=== PATIENT | female | born 1935 | race Caucasian/White ===

== ENCOUNTER 2019-05-07 14:35 | Inpatient (IN) | payer MEDICARE ==
[2019-05-07 15:13] LABS: #Basophils 0.1 thou/uL (0.0-0.2); #Eosinphils 0.3 thou/uL (0.0-0.7); #Lymphocytes 2.2 thou/uL (1.20-3.40); #Neutrophils 4.9 thou/uL (1.40-6.50); %Basophils 0.6 % (0.0-1.0); %Eosinophils 3.4 % (0.0-10.0); %Lymphocytes 26.3 % (21.0-51.0); %Monocytes 11.6 % (0.0-10.0); %Neutrophils 58.1 % (42.0-75.0); Hemoglobin 11.5 g/dL (12.0-16.0); Mean Corpuscular HGB CONC 33.2 g/dL (32.0-36.0); Mean Corpuscular Hemoglobin 30.7 pg (27.0-31.0); Mean Corpuscular Volume 92.6 fL (78.0-98.0); Mean Platelet Volume 8.5 fL (7.4-10.4); Platelet Count 305 thou/uL (130-400); RBC Distribution Width 11.9 % (11.5-14.5); Red Blood Cell (RBC) Count 3.76 mill/uL (4.20-5.40); White Blood Cell (WBC) Count 8.5 thou/uL (4.8-10.8)
[2019-05-07 15:52] LABS: ALT (SGPT) 12 U/L (8-55); AST (SGOT) 25 U/L (5-34); Albumin 3.7 g/dL (3.4-4.8); Alkaline Phosphatase 89 U/L (40-110); Anion Gap 15 mmol/L (10-20); BUN (Urea Nitrogen) 13 mg/dL (9.8-20.1); Bilirubin, Total 0.4 mg/dL (0.2-1.2); Calc. Creatinine Clearance 0 mL/min (70-130); Calcium 8.9 mg/dL (7.8-10.44); Carbon Dioxide 27 mmol/L (23-31); Chloride 100 mmol/L (98-107); Estimated GFR-MDRD 73; Globulin 3.3 g/dL (2.4-3.5); Glucose 110 mg/dL (83-110); Potassium 4.8 mmol/L (3.5-5.1); Sodium 137 mmol/L (136-145)
--- NOTE | 2019-05-07 16:21 | ULT ---
Venous duplex sonogram bilateral lower extremity HISTORY: Bilateral leg pain and edema. FINDINGS: Each common femoral vein and greater saphenous junction were evaluated along with each femo ral, deep femoral, popliteal, and posterior tibial vein. There is good color and spectral Doppler flow and compression. IMPRESSION: No sonographic evidence of DVT within either lower extremity.
--- NOTE | 2019-05-07 16:36 | RAD ---
Exam: Chest one view HISTORY:Dyspnea. Erythema. Leg pain. Comparison: None FINDINGS: Cardiac silhouette:Upper normal cardiac silhouette. Aorta: Atherosclerosis Pulmonary vessels: Normal Costophrenic angles: Clear LUNGS: Hyperinflation. No masses or consolidation. Pneumothorax: None Osseous abnormalities: None IMPRESSION: 1. Cardiomegaly. No congestive heart failure 2. Atherosclerosis 2. Hyperinflation. Correlate for possible COPD. No masses or consolidation.
[2019-05-07] MEDS ORDERED: Ondansetron PF 4 MG/2 ML Vial ONE (16:58)
[2019-05-07] MEDS ORDERED: Morphine 4 MG/ML VIAL ONE (16:58)
[2019-05-07] MEDS ORDERED: Vancomycin 1 GM/200 ML BAG ONE (17:35)
[2019-05-07 18:10] LABS: Bilirubin Negative (Negative); Blood, Urine Negative (Negative); Glucose, Urine (Dipstick) Negative (Negative); Leukocyte Moderate (Negative); Nitrite Negative (Negative); Protein, Urine (Dipstick) Negative (Neg-Trace); Urobilinogen 0.2 mg/dL (Less than 2)
[2019-05-07 18:11] LABS: Clarity Clear (Clear)
[2019-05-07 18:14] LABS: RBC/HPF 0-3 HPF (0-3); Squamous Epithelial 0-3 HPF (0-3); Transitional Epithelial 0-3 HPF (None Seen); WBC/HPF Greater than 50 HPF (0-3)
[2019-05-07 18:15] LABS: Bacteria/HPF 1+ HPF (None Seen)
[2019-05-07 21:12] VITALS: BMI 22.5
[2019-05-07] MEDS ORDERED: Ketorolac Tromethamine 30 MG/ML VIAL IVP PRN (21:22)
[2019-05-08] MEDS ORDERED: Acetaminophen 650 MG Suppository PR PRN (01:00)
[2019-05-08] MEDS ORDERED: HYDROcodone/Acetaminophen 5/325 mg Tablet PO PRN (01:00)
[2019-05-08] MEDS: Sodium Chloride 0.9% 1,000 ML IV SCH (01:43)
--- NOTE | 2019-05-08 03:30 | PDOC.HHP ---
Hospitalist HPI - History of Present Illness Bilateral lower leg pain and swelling History of Present Illness: Ms. Zhao presents with complaints of increasing redness and swelling as well as pain in both lower legs for the last 2 weeks. She recently had completed a course of antibiotics for bilateral lower leg cellulitis. She has had issues with recurring infections since this past summer after undergoing a procedure for her PVD. She states her symptoms had gotten better until she was off the antibiotics. Reports having pain in both legs. No trauma or injury. she has noted swelling of both feet. Her pain is 8/10 in severity. Son states they were told the infections are due to poor circulation and that they would benefit form being seen by a CV surgeon to discuss options. ED Course: In the ED she had an EKG showing NSR, HR 83. CXR: 1. Cardiomegaly. No congestive heart failure 2. Atherosclerosis 3. Hyperinflation. Correlate for possible COPD. No masses or consolidation. Venous doppler, Bilat: No evidence of DVT within either lower extremity. Labs showed a normal lactic acid. Trop negative. BNP 70.4. WCC 8.5, Hgb 11.5, Platelet 305. BUN 13, creat 0.75, GFR 73. Started on Vanc. Given Morphine for pain. Hospitalist ROS - Review of Systems Constitutional: denies: fever, chills, sweats, weakness, malaise, other Eyes: denies: pain, vision change, conjunctivae inflammation, eyelid inflammation, redness, other ENT: denies: ear pain, ear discharge, nose pain, nose discharge, nose congestion , mouth pain, mouth swelling, throat pain, throat swelling, other Respiratory: denies: cough, dry, shortness of breath, hemoptysis, SOB with excertion, pleuritic pain, sputum, wheezing, other Cardiovascular: denies: chest pain, palpitations, orthopnea, paroxysmal noc. dyspnea, edema, light headedness, other Gastrointestinal: denies: nausea, vomiting, abdominal pain, diarrhea, constipation, melena, hematochezia, other Genitourinary: denies: dysuria, frequency, incontinence, hematuria, retention, other Musculoskeletal: reports: leg pain (bilateral with erythema and swelling), foot pain (swelling) Skin: reports: other (dry scaling skin changes of both lower legs) - Medication Medications: Active Medications Generic Name Dose Route Start Last Admin Trade Name Luan PRN Reason Stop Dose Admin Sodium Chloride 1,000 mls @ 50 mls/hr 05/08/19 01:15 05/08/19 01:43 Normal Saline 0.9% IV 1,000 mls .Q20H DONALD Administration Ketorolac Tromethamine 15 mg 05/07/19 21:22 05/07/19 22:16 Toradol IVP 05/12/19 21:23 15 mg Q6H PRN Administration Pain Home Medications: Augmentin FriMay 07, 2019 15:42 NANO Elizabeth Kassidy tablet : Strength - 875 mg-125 mg : ORAL Patient Dose: 2 times a day. Keflex FriMay 07, 2019 15:43 NANO Elizabeth Kassidy capsule : Strength - 500 mg : ORAL Patient Dose: 2 times a day.for 7 days. fexofenadine FriMay 07, 2019 15:43 NANO Elizabeth Kassidy tablet : Strength - 180 mg : ORAL Patient Dose: once a day (in the morning). nystatin topical FriMay 07, 2019 15:44 NANO Elizabeth Kassidy powder : Strength - 100,000 unit/gram : TOPICAL Patient Dose: 2 times a day. divalproex FriMay 07, 2019 15:45 NANO Elizabeth Kassidy tablet extended release 24 hr : Strength - 250 mg : ORAL Patient Dose: once a day. Tylenol Extra Strength FriMay 07, 2019 15:45 NANO Elizabeth Kassidy capsule : Strength - 500 mg : ORAL Patient Dose: once a day. OLANZapine oral FriMay 07, 2019 15:46 NANO Elizabeth Kassidy tablet : Strength - 5 mg : ORAL Patient Dose: once a day (in the evening). Pradaxa FriMay 07, 2019 15:46 NANO Elizabeth Kassidy capsule : Strength - 75 mg : ORAL Patient Dose: 2 times a day. Lasix oral FriMay 07, 2019 15:47 NANO Elizabeth Kassidy tablet : Strength - 20 mg : ORAL Patient Dose: 2 times a day. Hospitalist History - Past Medical History Source: patient, family Cardiac: reports: AFIB, Other (PVD) Psych: reports: Bipolar, Other (Dementia) Musculoskeletal: reports: Other (dependent edema) Infectious Disease: reports: Other (chronic cellulitis of BLE) - Past Surgical History Past Surgical History: reports: Tubal Ligation - Family History Family History: reports: no pertinent history - Social History Smoking Status: Never smoker Alcohol: reports: None Drugs: reports: none Living Situation: Alone Activity level: uses cane/walker (normally uses a walker but more recently requiring wheelchair due to leg pain/swelling) - Exam General Appearance: NAD, awake alert Eye: PERRL, anicteric sclera ENT: normocephalic atraumatic, no oropharyngeal lesions, dry oral mucosa Neck: supple, no lymphadenopathy Heart: RRR, normal peripheral pulses Respiratory: CTAB, no wheezes, no rales, no ronchi, normal chest expansion, no tachypnea Gastrointestinal: soft, non-tender, non-distended, normal bowel sounds, no guarding, no rigidity Extremities - other findings: swelling of bilateral feet and lower legs, redness from ankles up to knees Skin - other findings: generally dry skin, with scaling of bilateral lower legs Neurological: cranial nerve grossly intact, normal sensation to touch Musculoskeletal: normal tone, normal strength, no muscle wasting Psychiatric: normal affect, normal behavior, A&O x 3 Hospitalist Results - Labs Result Diagrams: 05/07/19 14:54 05/07/19 14:54 Lab results: WBC 8.5 thou/uL (4.8-10.8) 05/07/19 14:54 Hgb 11.5 g/dL (12.0-16.0) L 05/07/19 14:54 Hct 34.8 % (36.0-47.0) L 05/07/19 14:54 MCV 92.6 fL (78.0-98.0) 05/07/19 14:54 Plt Count 305 thou/uL (130-400) 05/07/19 14:54 Neutrophils % 58.1 % (42.0-75.0) 05/07/19 14:54 Sodium 137 mmol/L (136-145) 05/07/19 14:54 Potassium 4.8 mmol/L (3.5-5.1) 05/07/19 14:54 Chloride 100 mmol/L (98-107) 05/07/19 14:54 Carbon Dioxide 27 mmol/L (23-31) 05/07/19 14:54 BUN 13 mg/dL (9.8-20.1) 05/07/19 14:54 Creatinine 0.75 mg/dL (0.6-1.1) 05/07/19 14:54 Glucose 110 mg/dL (83-110) 05/07/19 14:54 Lactic Acid 1.4 mmol/L (0.5-2.2) 05/07/19 15:41 Calcium 8.9 mg/dL (7.8-10.44) 05/07/19 14:54 Total Bilirubin 0.4 mg/dL (0.2-1.2) 05/07/19 14:54 AST 25 U/L (5-34) 05/07/19 14:54 ALT 12 U/L (8-55) 05/07/19 14:54 Alkaline Phosphatase 89 U/L (40-110) 05/07/19 14:54 Troponin I 0.023 ng/mL (< 0.028) 05/07/19 14:54 B-Natriuretic Peptide 70.4 pg/mL (0-100) 05/07/19 14:54 Serum Total Protein 7.0 g/dL (6.0-8.3) 05/07/19 14:54 Albumin 3.7 g/dL (3.4-4.8) 05/07/19 14:54 Urine Ketones 15 mg/dL (Negative) A 05/07/19 17:57 Urine Blood Negative (Negative) 05/07/19 17:57 Urine Nitrite Negative (Negative) 05/07/19 17:57 Ur Leukocyte Esterase Moderate (Negative) H 05/07/19 17:57 Urine RBC 0-3 HPF (0-3) 05/07/19 17:57 Urine WBC Greater than 50 HPF (0-3) A 05/07/19 17:57 Ur Squamous Epith Cells 0-3 HPF (0-3) 05/07/19 17:57 Urine Bacteria 1+ HPF (None Seen) A 05/07/19 17:57 Hospitalist H&P A/P - Problem (1) Bilateral lower leg cellulitis Code(s): L03.116 - CELLULITIS OF LEFT LOWER LIMB; L03.115 - CELLULITIS OF RIGHT LOWER LIMB Status: Acute (2) Leg pain Status: Acute (3) Cardiomegaly Code(s): I51.7 - CARDIOMEGALY Status: Acute (4) Dependent edema Code(s): R60.9 - EDEMA, UNSPECIFIED Status: Chronic (5) History of atrial fibrillation Code(s): Z86.79 - PERSONAL HISTORY OF OTHER DISEASES OF THE CIRCULATORY SYSTEM Status: Chronic (6) PVD (peripheral vascular disease) Code(s): I73.9 - PERIPHERAL VASCULAR DISEASE, UNSPECIFIED Status: Chronic - Plan Plan: Continue IV Abx Consult Dr. Baldwin of ID Will try Toradol for pain, morphine did not help Reconcile home meds once verified. Repeat labs in AM. CODE STATUS: FULL Surrogate decision maker is her son: Dwight Meadows PCP: Dr. Sheets.
[2019-05-08 06:36] LABS: #Eosinphils 0.2 thou/uL (0.0-0.7); #Lymphocytes 1.5 thou/uL (1.20-3.40); #Monocytes 0.8 thou/uL (0.11-0.59); #Neutrophils 4.1 thou/uL (1.40-6.50); %Basophils 0.3 % (0.0-1.0); %Lymphocytes 23.5 % (21.0-51.0); %Monocytes 11.6 % (0.0-10.0); %Neutrophils 61.6 % (42.0-75.0); Hemoglobin 9.9 g/dL (12.0-16.0); Mean Corpuscular HGB CONC 33.3 g/dL (32.0-36.0); Mean Corpuscular Hemoglobin 30.9 pg (27.0-31.0); Mean Corpuscular Volume 92.8 fL (78.0-98.0); Mean Platelet Volume 7.9 fL (7.4-10.4); Platelet Count 244 thou/uL (130-400); RBC Distribution Width 11.7 % (11.5-14.5); White Blood Cell (WBC) Count 6.6 thou/uL (4.8-10.8)
[2019-05-08 06:57] LABS: Anion Gap 10 mmol/L (10-20); BUN (Urea Nitrogen) 12 mg/dL (9.8-20.1); Calc. Creatinine Clearance 67 mL/min (70-130); Carbon Dioxide 25 mmol/L (23-31); Chloride 105 mmol/L (98-107); Estimated GFR-MDRD Greater than 90; Glucose 89 mg/dL (83-110); Sodium 136 mmol/L (136-145)
[2019-05-08] MEDS: HYDROcodone/Acetaminophen 5/325 mg Tablet PO PRN ×3 (08:42→19:59)
[2019-05-08] MEDS ORDERED: Vancomycin 1 GM in Premix Bag 1 BAG IVPB SCH ×2 (12:00→18:00)
--- NOTE | 2019-05-08 12:07 | PDOC.HOSPP ---
- Subjective Encounter Date: 05/08/19 Encounter Time: 11:45 Subjective: f/u for LE cellulitis and chronic lymphedema tx with Vancomycin currently. Family states it looks improved since yesterday. - Objective Vital Signs & Weight: Vital Signs (12 hours) Temp Pulse Resp BP Pulse Ox 05/08/19 11:39 98.2 F 86 16 110/58 L 95 05/08/19 07:45 98.4 F 85 16 119/56 L 95 05/08/19 04:00 98.4 F 84 20 124/68 93 L Weight Weight 143 lb 12.8 oz Result Diagrams: 05/08/19 06:25 05/08/19 06:25 Additional Labs: Microbiology 05/07/19 15:41 Venous blood - Right Hand Blood Culture - Preliminary Specimen has been received and culture in progress. No Growth to date. 05/07/19 15:35 Venous blood - Left Hand Blood Culture - Preliminary Specimen has been received and culture in progress. No Growth to date. Laboratory Tests 05/07/19 14:54 Hgb 11.5 L Radiology Reviewed by me: Yes (BLE dopp - no DVT) Hospitalist ROS - Medication Medications: Active Medications Generic Name Dose Route Start Last Admin Trade Name Freq PRN Reason Stop Dose Admin Hydrocodone Bitart/Acetaminophen 1 tab 05/08/19 01:00 05/08/19 08:42 [place] 5/325 PO 1 tab Q4H PRN Administration Moderate Pain (4-6) Sodium Chloride 1,000 mls @ 50 mls/hr 05/08/19 01:15 05/08/19 01:43 Normal Saline 0.9% IV 1,000 mls .Q20H DONALD Administration Vancomycin HCl 1 gm/ Device 200 mls @ 200 mls/hr 05/08/19 12:00 05/08/19 12: 02 IVPB 200 mls Q12H DONALD Administration Ketorolac Tromethamine 15 mg 05/07/19 21:22 05/07/19 22:16 Toradol IVP 05/12/19 21:23 15 mg Q6H PRN Administration Pain - Exam General Appearance: NAD Eye: PERRL, anicteric sclera ENT: normocephalic atraumatic, no oropharyngeal lesions Neck: supple, symmetric, no JVD, no thyromegaly Heart: RRR, no murmur, no gallops, no rubs, diminshed peripheral pulses Respiratory: CTAB, no wheezes, no rales, no ronchi, normal chest expansion Gastrointestinal: soft, non-tender, non-distended, normal bowel sounds, no palpable masses Extremities: no cyanosis, no clubbing Extremities - other findings: minimal edema Skin - other findings: BLE with chronic venous stasis, scaling, erythema Neurological: cranial nerve grossly intact, no new deficit Musculoskeletal: normal tone, generalized weakness Psychiatric: normal affect, oriented to person Hosp A/P (1) Bilateral lower leg cellulitis Code(s): L03.116 - CELLULITIS OF LEFT LOWER LIMB; L03.115 - CELLULITIS OF RIGHT LOWER LIMB Status: Acute Plan: Improved, continue Vancomycin 1gm IV q12h, consult wound care team, elevate [place] (2) Chronic venous stasis dermatitis of both lower extremities Code(s): I87.2 - VENOUS INSUFFICIENCY (CHRONIC) (PERIPHERAL) Status: Chronic Plan: Consult WCT, Elevate [place], plan for ferry terminal agent mgmt (3) UTI (urinary tract infection) Status: Acute Plan: Suspected, start Rocephin 2gm IV daily (4) Anemia Code(s): D64.9 - ANEMIA, UNSPECIFIED Status: Acute Plan: Unclear etiology, component of nutritional status, check Iron studies, serial H/ H - Plan plan discussed w/ family, continue antibiotics, PT/OT, social media content manager, out of bed/ambulate Stable currently Continue Vancomycin 1gm IV q12h Add Rocephin 2gm IV daily WCT consult Consult CM for ?SNF/NH options AM lab: BMP, CBC
[2019-05-08] MEDS ORDERED: cefTRIAXone\\ROCEPHIN 2 GM in Sodium Chloride 0.9% 100 ML IVPB SCH (13:00)
--- NOTE | 2019-05-08 15:07 | CON ---
DATE OF CONSULTATION: 05/08/2019 REASON FOR CONSULTATION: Possible cellulitis. HISTORY OF PRESENT ILLNESS: An 84-year-old with history of venous insufficiency, dementia, atrial fibrillation, who has been diagnosed with cellulitis in the lower extremities for the past few months and treated with antimicrobials without improvement. She was eventually admitted here and she is currently on antimicrobial therapy. She has a lot of itching in the legs. No headaches. No visual symptoms. No sore throat, odynophagia, dysphagia, or dyspnea. No chest pain. No abdominal pain. Voiding spontaneously. No diarrhea. PAST MEDICAL HISTORY: 1. Dementia, probably from vascular issues. 2. Atrial fibrillation. 3. Venous insufficiency. PAST SURGICAL HISTORY: Tubal ligation. SOCIAL HISTORY: Never smoker. Lives in an assisted living facility, [facility], in [place]. ALLERGIES: NONE. MEDICATION LIST: 1. [place]. 2. Rocephin. 3. Pradaxa. 4. Depakote. 5. Toradol. 6. Claritin. 7. Zyprexa. 8. Vancomycin. PHYSICAL EXAMINATION: VITAL SIGNS: Essentially normal temperature. Other vital signs are not particularly remarkable. O2 saturations are 95. GENERAL: Eating lunch at the moment. She does not appear in distress. She is able to answer questions and establishes eye contact. SKIN: The areas of lipodermatosclerosis in the lower extremities with a lot of hyperkeratosis, quite symmetric distribution, right and left side. No lymphadenopathy. HEENT: Noncontributory. NECK: Supple. LUNGS: Symmetric with clear breath sounds. HEART: S1 and S2. Regular rate. Maybe a soft 2/6 murmur at the aortic area. ABDOMEN: Soft, not distended or tender. No ascites. No bladder distention. No organomegaly. EXTREMITIES: No joint inflammatory activity. Pulses are 1+ in dorsalis pedis. Able to move extremities, but she is somewhat weak in all 4 extremities, but no focal weakness. NEUROLOGIC: She knows her name and knew she was in the hospital at [facility] in [place] and the date as well with a little bit more difficulty. LABORATORY DATA: Creatinine 0.75. The liver profile normal. Albumin 3.7. Urinalysis with greater than 50 wbc's. Blood cultures negative. I do not see any urine sample submitted. The duplex ultrasound showed no evidence of deep vein thrombosis. Chest x-ray with cardiomegaly, hyperinflation. ASSESSMENT: 1. Atrial fibrillation. 2. Some element of dementia, probably vascular. 3. Venous insufficiency with lipodermatosclerosis in the lower extremities. DISCUSSION: The clinical findings are more consistent with lipodermatosclerosis rather than cellulitis. Recommend discontinuation of Rocephin and vancomycin. Switch her to oral penicillin VK prophylaxis and compressive dressings in preparation for discharge planning. Eventually, she can be switched to compression stockings at least 20 to 30 mmHg. Job ID: [id number]
[2019-05-08] MEDS: OLANZapine 5 MG TAB PO SCH (20:00)
[2019-05-08] MEDS: Penicillin V Potassium 250 MG TAB PO SCH (20:00)
[2019-05-09] MEDS: Sodium Chloride 0.9% 1,000 ML IV SCH ×2 (05:59→19:18)
[2019-05-09 06:13] LABS: Anion Gap 11 mmol/L (10-20); BUN (Urea Nitrogen) 12 mg/dL (9.8-20.1); Calc. Creatinine Clearance 62 mL/min (70-130); Calcium 8.2 mg/dL (7.8-10.44); Carbon Dioxide 26 mmol/L (23-31); Chloride 103 mmol/L (98-107); Estimated GFR-MDRD 83; Glucose 97 mg/dL (83-110); Iron 27 ug/dL (50-170); Sodium 136 mmol/L (136-145); Valproic Acid (Depakene) Less than 12.5 ug/mL (50.0-100.0)
[2019-05-09 06:34] LABS: Reticulocyte Count 1.7 % (0.5-1.5)
[2019-05-09 08:06] LABS: Eosinophils 1 % (0-10); Hemoglobin 10.1 g/dL (12.0-16.0); Lymphocytes 12 % (21-51); MDiff Complete? YES; Mean Corpuscular HGB CONC 33.6 g/dL (32.0-36.0); Mean Corpuscular Hemoglobin 31.1 pg (27.0-31.0); Mean Corpuscular Volume 92.6 fL (78.0-98.0); Monocytes 4 % (0-10); Neutrophil 83 % (42-75); Platelet Count 261 thou/uL (130-400); RBC Distribution Width 11.8 % (11.5-14.5); Red Blood Cell (RBC) Count 3.26 mill/uL (4.20-5.40)
[2019-05-09] MEDS: Calamine/Zinc Oxide 177 ML LOTION TP SCH (09:12)
[2019-05-09] MEDS: Loratadine 10 MG TAB PO SCH (09:13)
[2019-05-09] MEDS: Divalproex Sodium 250 MG (DR) TAB PO SCH (09:13)
[2019-05-09] MEDS: Penicillin V Potassium 250 MG TAB PO SCH ×2 (11:33→21:39)
--- NOTE | 2019-05-09 12:41 | PDOC.HOSPP ---
- Subjective Encounter Date: 05/09/19 Encounter Time: 12:35 Subjective: f/u for LE cellulitis/lymphedema on previous Vanc/Rocephin. Feels ok overall except for L hip pain. - Objective Vital Signs & Weight: Vital Signs (12 hours) Temp Pulse Resp BP Pulse Ox 05/09/19 12:01 98.7 F 97 16 147/67 H 97 05/09/19 08:00 97 05/09/19 07:48 100.8 F H 88 16 137/65 92 L Weight Weight 143 lb 12.8 oz I&O: 05/08/19 05/09/19 05/10/19 06:59 06:59 06:59 Intake Total 2040 Output Total 1300 950 Balance 740 -950 Result Diagrams: 05/09/19 05:38 05/09/19 05:38 Additional Labs: Microbiology 05/07/19 15:41 Venous blood - Right Hand Blood Culture - Preliminary Specimen has been received and culture in progress. No Growth to date. 05/07/19 15:35 Venous blood - Left Hand Blood Culture - Preliminary Specimen has been received and culture in progress. No Growth to date. Laboratory Tests 05/07/19 05/09/19 05/09/19 14:54 05:38 05:38 Hgb 11.5 L Retic Count Immature Retic Fraction Iron 27 L Ferritin 120.86 Valproic Acid Less than 12.5 L 05/09/19 05:38 Hgb Retic Count 1.7 H Immature Retic Fraction 0.315 Iron Ferritin Valproic Acid Hospitalist ROS - Medication Medications: Active Medications Generic Name Dose Route Start Last Admin Trade Name Freq PRN Reason Stop Dose Admin Hydrocodone Bitart/Acetaminophen 1 tab 05/08/19 01:00 05/08/19 19:59 [place] 5/325 PO 1 tab Q4H PRN Administration Moderate Pain (4-6) Calamine/Zinc Oxide 0 ml 05/09/19 09:00 05/09/19 09:12 Calamine Lotion TP 177 ml DAILY DONALD Administration Dabigatran 75 mg 05/08/19 21:00 05/09/19 11:33 Pradaxa PO 75 mg BID DONALD Administration Divalproex Sodium 250 mg 05/09/19 09:00 05/09/19 09:13 Depakote PO 250 mg DAILY DONALD Administration Sodium Chloride 1,000 mls @ 50 mls/hr 05/08/19 01:15 05/09/19 05:59 Normal Saline 0.9% IV 1,000 mls .Q20H DONALD Administration Ketorolac Tromethamine 15 mg 05/07/19 21:22 05/07/19 22:16 Toradol IVP 05/12/19 21:23 15 mg Q6H PRN Administration Pain Loratadine 10 mg 05/09/19 09:00 05/09/19 09:13 Claritin PO 10 mg DAILY DONALD Administration Mineral Oil/White Petrolatum 0 gm 05/08/19 21:00 05/09/19 09:13 Aquaphor 99 Gm TOP 1 applic Q12HR DONALD Administration Olanzapine 5 mg 05/08/19 21:00 05/08/19 20:00 Zyprexa PO 5 mg HS DONALD Administration Penicillin V Potassium 250 mg 05/08/19 21:00 05/09/19 11:33 Penicillin V Potassium PO 250 mg BID DONALD Administration - Exam General Appearance: NAD, awake alert Eye: PERRL, anicteric sclera ENT: normocephalic atraumatic, no oropharyngeal lesions Neck: supple, symmetric, no JVD, no thyromegaly Heart: RRR, no murmur, no gallops, no rubs, normal peripheral pulses Heart - other findings: S1, S2 Respiratory: CTAB, no wheezes, no rales, no ronchi, normal chest expansion Gastrointestinal: soft, non-tender, non-distended, normal bowel sounds, no palpable masses Extremities - other findings: bilat LE wraps in place, L greater trochanter TTP , no edema/ulcer Neurological: cranial nerve grossly intact, no new deficit Musculoskeletal: normal tone, generalized weakness Psychiatric: oriented to person, oriented to place Hosp A/P (1) Bilateral lower leg cellulitis Code(s): L03.116 - CELLULITIS OF LEFT LOWER LIMB; L03.115 - CELLULITIS OF RIGHT LOWER LIMB Status: Acute Plan: Continue Pen V K 250mg BID, local WCT (2) Chronic venous stasis dermatitis of both lower extremities Code(s): I87.2 - VENOUS INSUFFICIENCY (CHRONIC) (PERIPHERAL) Status: Chronic Plan: Compression wraps, elevate LE while seated or in bed, local skin care (3) UTI (urinary tract infection) Status: Acute Plan: Suspected given UA but no cx results available, add Macrobid (4) Anemia Code(s): D64.9 - ANEMIA, UNSPECIFIED Status: Acute Plan: Iron-deficiency component, add FeSO4 325mg daily - Plan plan discussed w/ family, continue antibiotics, PT/OT, pediatric social worker, out of bed/ambulate, DVT proph w/SCDs Stable currently Add Macrobid 100mg BID WCT for local care Consult CM for ?SNF/NH options Continue Pen V 250mg BID X-ray L hip to r/o fx AM lab: BMP, CBC
[2019-05-09] MEDS ORDERED: Nitrofurantoin Monohyd/M-Cryst 100 MG CAP PO SCH (14:00)
--- NOTE | 2019-05-09 16:50 | RAD ---
2 views of the left hip: 05/09/2019 COMPARISON: None HISTORY: Pain FINDINGS: No displaced fracture or evidence of dislocation. If the patient has persistent pain or is unable to bear weight, follow-up cross-sectional imaging suggested. IMPRESSION: No evidence for acute fracture or dislocation.
[2019-05-09] MEDS: Acetaminophen 325 MG TAB PO PRN ×2 (16:51→21:55)
[2019-05-09] MEDS: OLANZapine 5 MG TAB PO SCH (21:39)
[2019-05-09] MEDS: Nitrofurantoin Monohyd/M-Cryst 100 MG CAP PO SCH (21:39)
[2019-05-10 06:40] LABS: Hemoglobin 10.5 g/dL (12.0-16.0); Mean Corpuscular HGB CONC 32.9 g/dL (32.0-36.0); Mean Corpuscular Hemoglobin 30.2 pg (27.0-31.0); Mean Platelet Volume 8.5 fL (7.4-10.4); Platelet Count 242 thou/uL (130-400); RBC Distribution Width 11.8 % (11.5-14.5); Red Blood Cell (RBC) Count 3.48 mill/uL (4.20-5.40); White Blood Cell (WBC) Count 10.9 thou/uL (4.8-10.8)
[2019-05-10 06:51] LABS: Band 2 % (5-11); Eosinophils 3 % (0-10); Lymphocytes 14 % (21-51); MDiff Complete? YES; Monocytes 6 % (0-10); Neutrophil 75 % (42-75)
[2019-05-10 07:26] LABS: Anion Gap 11 mmol/L (10-20); BUN (Urea Nitrogen) 10 mg/dL (9.8-20.1); Calc. Creatinine Clearance 69 mL/min (70-130); Calcium 8.3 mg/dL (7.8-10.44); Carbon Dioxide 25 mmol/L (23-31); Chloride 103 mmol/L (98-107); Estimated GFR-MDRD Greater than 90; Glucose 98 mg/dL (83-110); Potassium 3.6 mmol/L (3.5-5.1); Sodium 135 mmol/L (136-145)
[2019-05-10] MEDS: Ferrous Sulfate 325 MG TAB PO SCH (08:39)
[2019-05-10] MEDS: Nitrofurantoin Monohyd/M-Cryst 100 MG CAP PO SCH ×2 (08:39→21:47)
[2019-05-10] MEDS: Penicillin V Potassium 250 MG TAB PO SCH ×2 (08:39→21:47)
[2019-05-10] MEDS: Divalproex Sodium 250 MG (DR) TAB PO SCH (08:39)
[2019-05-10] MEDS: Loratadine 10 MG TAB PO SCH (08:39)
[2019-05-10] MEDS: Calamine/Zinc Oxide 177 ML LOTION TP SCH (09:01)
--- NOTE | 2019-05-10 17:23 | PRG ---
DATE OF SERVICE: 05/10/2019 SUBJECTIVE: Watching television. She ate lunch today and had a good appetite. Denies any respiratory symptoms. No abdominal pain. Having some left hip pain when she tries to move it. Voiding without difficulty. OBJECTIVE: VITAL SIGNS: Had a low-grade temperature elevation 100.8 at 7 p.m. on the and she is 98 at this moment, BP 117/72, pulse 112 and now is 86, respirations 16, and O2 saturation 95. GENERAL: Awake, alert, and oriented. Does not appear in distress. LUNGS: Symmetric clear breath sounds. HEART: S1 and S2. Regular rate. ABDOMEN: Soft. Passive motion of the left hip. Does not elicit pain including flexion, extension, logroll motion, adduction, and abduction. Also patient has no pain on direct pressure over the left hip site. The legs are wrapped with a compressive dressing. LABORATORY DATA: White cell count 10.9, hemoglobin 10.5, and platelets 242. Creatinine 0.6. Microbiology with negative blood cultures. Hip x-ray with osteoarthritis, but no other changes. ASSESSMENT AND DISCUSSION: An 84-year-old with venous insufficiency, stasis dermatitis, and lipodermatosclerosis. She is on penicillin VK for prophylaxis, but not clear what the etiology of the fever is, low-grade temperature elevation. One concern would be deep vein thrombosis since she is not very mobile. A recent duplex ultrasound of the lower extremities was negative and it is too soon to repeat another one. Job ID: [id number] [id number]
--- NOTE | 2019-05-10 17:49 | PDOC.HOSPP ---
- Subjective Encounter Date: 05/10/19 Encounter Time: 17:15 Subjective: f/u for bilat LE cellulitis on current Pen VK. - Objective Vital Signs & Weight: Vital Signs (12 hours) Temp Pulse Resp BP Pulse Ox 05/10/19 08:00 95 05/10/19 07:30 98.0 F 112 H 16 117/72 95 Weight Admit Weight 143 lb 12.8 oz Weight 143 lb 12.8 oz I&O: 05/09/19 05/10/19 05/11/19 06:59 06:59 06:59 Intake Total 2040 720 Output Total 1300 1650 Balance 740 -930 Result Diagrams: 05/10/19 05:54 05/10/19 05:54 Additional Labs: Microbiology 05/07/19 15:41 Venous blood - Right Hand Blood Culture - Preliminary Specimen has been received and culture in progress. No Growth to date. 05/07/19 15:35 Venous blood - Left Hand Blood Culture - Preliminary Specimen has been received and culture in progress. No Growth to date. Laboratory Tests 05/07/19 05/09/19 05/09/19 14:54 05:38 05:38 Hgb 11.5 L Retic Count Immature Retic Fraction Iron 27 L Ferritin 120.86 Valproic Acid Less than 12.5 L 05/09/19 05:38 Hgb Retic Count 1.7 H Immature Retic Fraction 0.315 Iron Ferritin Valproic Acid Radiology Reviewed by me: Yes (L hip x-ray - negative) Hospitalist ROS - Medication Medications: Active Medications Generic Name Dose Route Start Last Admin Trade Name Freq PRN Reason Stop Dose Admin Acetaminophen 650 mg 05/08/19 01:00 05/09/19 21:55 Tylenol PO 650 mg Q4H PRN Administration Headache/Fever/Mild Pain (1-3) Hydrocodone Bitart/Acetaminophen 1 tab 05/08/19 01:00 05/08/19 19:59 [place] 5/325 PO 1 tab Q4H PRN Administration Moderate Pain (4-6) Calamine/Zinc Oxide 0 ml 05/09/19 09:00 05/10/19 09:01 Calamine Lotion TP 1 ml DAILY DONALD Administration Dabigatran 75 mg 05/08/19 21:00 05/10/19 08:39 Pradaxa PO 75 mg BID DONALD Administration Divalproex Sodium 250 mg 05/09/19 09:00 05/10/19 08:39 Depakote PO 250 mg DAILY DONALD Administration Ferrous Sulfate 325 mg 05/10/19 08:00 05/10/19 08:39 Feosol PO 325 mg QAM-WM DONALD Administration Ketorolac Tromethamine 15 mg 05/07/19 21:22 05/07/19 22:16 Toradol IVP 05/12/19 21:23 15 mg Q6H PRN Administration Pain Loratadine 10 mg 05/09/19 09:00 05/10/19 08:39 Claritin PO 10 mg DAILY DONALD Administration Mineral Oil/White Petrolatum 0 gm 05/08/19 21:00 05/10/19 09:01 Aquaphor 99 Gm TOP 1 applic Q12HR DONALD Administration Nitrofurantoin Macrocrystals 100 mg 05/09/19 21:00 05/10/19 08:39 Macrobid PO 100 mg BID DONALD Administration Olanzapine 5 mg 05/08/19 21:00 05/09/19 21:39 Zyprexa PO 5 mg HS DONALD Administration Penicillin V Potassium 250 mg 05/08/19 21:00 05/10/19 08:39 Penicillin V Potassium PO 250 mg BID DONALD Administration - Exam General Appearance: NAD, awake alert Eye: PERRL, anicteric sclera ENT: normocephalic atraumatic, no oropharyngeal lesions Neck: supple, symmetric, no JVD, no thyromegaly Heart: RRR, no murmur, no gallops, no rubs, normal peripheral pulses Respiratory: CTAB, no wheezes, no rales, no ronchi, normal chest expansion Gastrointestinal: soft, non-tender, non-distended, normal bowel sounds, no palpable masses Extremities - other findings: bilat LE with mild erythema, decreased scaling and fissures Skin: normal turgor Neurological: no new deficit Musculoskeletal: normal tone, generalized weakness Psychiatric: oriented to person, oriented to place Hosp A/P (1) Bilateral lower leg cellulitis Code(s): L03.116 - CELLULITIS OF LEFT LOWER LIMB; L03.115 - CELLULITIS OF RIGHT LOWER LIMB Status: Acute Plan: Improved, continue local WCT, Pen V 250mg BID (2) Chronic venous stasis dermatitis of both lower extremities Code(s): I87.2 - VENOUS INSUFFICIENCY (CHRONIC) (PERIPHERAL) Status: Chronic Plan: LE compression wraps intermittently, local wound/skin care (3) UTI (urinary tract infection) Status: Acute Plan: continue Macrobid (4) Anemia Code(s): D64.9 - ANEMIA, UNSPECIFIED Status: Acute Plan: Start Protonix 40mg daily, serial H/H monitoring, may consider d/c of anticoagulation, d/c Toradol - Plan continue antibiotics, PT/OT, social work job titles, out of bed/ambulate Stable currently Continue Macrobid 100mg BID WCT for local care Consult CM for ?SNF/NH options Continue Pen V 250mg BID d/c Toradol AM lab: H/H
[2019-05-10] MEDS: OLANZapine 5 MG TAB PO SCH (21:48)
[2019-05-11 05:58] LABS: Hemoglobin 10.2 g/dL (12.0-16.0); Platelet Count 251 thou/uL (130-400)
[2019-05-11 08:12] VITALS: BP 125/67; TEMP 97.7
[2019-05-11] MEDS: Divalproex Sodium 250 MG (DR) TAB PO SCH (08:29)
[2019-05-11] MEDS: Nitrofurantoin Monohyd/M-Cryst 100 MG CAP PO SCH (08:30)
[2019-05-11] MEDS: Loratadine 10 MG TAB PO SCH (08:30)
[2019-05-11] MEDS: Penicillin V Potassium 250 MG TAB PO SCH (08:30)
[2019-05-11] MEDS: Ferrous Sulfate 325 MG TAB PO SCH (08:30)
[2019-05-11] MEDS: Calamine/Zinc Oxide 177 ML LOTION TP SCH (08:34)
--- NOTE | 2019-05-11 12:59 | DIS ---
DATE OF ADMISSION: 05/07/2019 DATE OF DISCHARGE: 05/11/2019 DISCHARGE DIAGNOSES: 1. Bilateral lower extremity cellulitis, improved. 2. Chronic venous stasis dermatitis of bilateral lower extremities. 3. Urinary tract infection without dominant organism. 4. Chronic normocytic anemia with iron deficiency component. CONSULTATIONS: Dr. Tahir Baldwin with Infectious Disease Service. PERTINENT LABORATORY AND X-RAY FINDINGS: Serum iron 27, ferritin 121. BNP 70. Lactic acid level 1.4. CBC showed a white blood cell count ranged between 6.6 to 10.9, hemoglobin ranged between 9.9 to 11.5. Blood cultures x2 dated 05/07/2019 showed no growth at 48 hours. Stool Hemoccult dated 05/10/2019 positive x1. Portable chest x-ray dated 05/07/2019 showed hyperinflation without acute process. Bilateral lower extremity venous Doppler study dated 05/07/2019 showed no evidence for DVT. Two views of the left hip dated 05/09/2019, showed no acute fracture or dislocation. HOSPITAL COURSE: The patient was initially admitted after presenting with increased lower extremity erythema and concerning for bilateral lower extremity cellulitis. The patient was placed on broad-spectrum antibiotic coverage with IV Rocephin and vancomycin and consultation was obtained by the Infectious Disease Service. Recommendations were to transition to Pen VK 250 mg b.i.d. and continue indefinitely. The patient also received local wound care by the Wound Care Service with topical application of emollients and elevation of the lower extremities for control of edema. The patient also had intermittent compression wraps applied with overall improvement of erythema and appearance of the lower extremities by the time of discharge. Due to the patient's comorbid status, deconditioned state, and need for ongoing supervised medical care, the patient has been approved for assisted care at [facility] in [place], [place]. I have examined the patient at the time of discharge and discussed followup instructions. The patient verbalized understanding and agreement, ready for discharge on 05/11/2019. DISCHARGE MEDICATIONS: 1. Pradaxa 75 mg p.o. b.i.d. 2. Depakote 250 mg p.o. daily. 3. Talia 180 mg p.o. daily. 4. Lasix 20 mg p.o. b.i.d. 5. Nystatin powder applied to affected area b.i.d. p.r.n. 6. Olanzapine 5 mg p.o. at bedtime. 7. Aquaphor topically applied. 8. Calamine lotion topically daily. 9. Ferrous sulfate 325 mg daily. 10. Macrobid 100 mg p.o. b.i.d. until 05/16/2019. 11. Protonix 40 mg p.o. daily. 12. Penicillin V 250 mg p.o. b.i.d. FOLLOWUP: The patient to follow up with Dr. Jovany Sheets. CONDITION ON DISCHARGE: Fair. ACTIVITY: Ad ronaldo, rolling walker with contact guard assistance. High fall risk precautions. DIET: Regular. CODE STATUS: Full. DISPOSITION: Discharged to [place], [place], 05/11/2019. TIME SPENT: Total time preparing and coordinating discharge is 34 minutes. Job ID: [id number]
== END 2019-05-11 16:27 | DRG 603 ==
LOC: ERS 14:35 → OBSVTOIN 18:09 → T4-B 18:09
PROVIDERS: ADMIT Internal Medicine; ATTEND Internal Medicine
DX: L03.115 Cellulitis of right lower limb (principal); N39.0 Urinary tract infection, site not specified; L03.116 Cellulitis of left lower limb; D50.8 Other iron deficiency anemias; I48.91 Unspecified atrial fibrillation; F03.90 Unspecified dementia, unspecified severity, without behavioral disturbance, psychotic disturbance, mood disturbance, and anxiety; F31.9 Bipolar disorder, unspecified; Z98.51 Tubal ligation status; I73.9 Peripheral vascular disease, unspecified; I51.7 Cardiomegaly; I83.12 Varicose veins of left lower extremity with inflammation; I83.11 Varicose veins of right lower extremity with inflammation
CPT/HCPCS: 36415; 51701; 71045; 80048; 80053; 80164; 81003; 81015; 82274; 82728; 83540; 83605; 83880; 84484; 85007; 85014; 85018; 85025; 85027; 85046; 85049; 87040; 93005; 93970; 96361; 96365; 96375; A4353; J0696; J1885; J2270; J2405; J3370; J3490